=== PATIENT | female | born 1990 | race Asian ===

== ENCOUNTER → 2018-11-25 | Outpatient (CLI) | payer MEDICAID | END | disposition home or self-care (01) | LOC: ROC 11-23 10:37 | PROVIDERS: ATTEND Radiology Radiation Oncology | DX: Q28.2 Arteriovenous malformation of cerebral vessels (principal) | CPT/HCPCS: 99214; G0463 ==

== ENCOUNTER → 2019-03-10 | Outpatient (CLI) | payer MEDICAID ==
[~2019-03-10] MED LIST: GADOBUTROL 7.5 MMOL/7.5 ML PFS ONE
== END | disposition home or self-care (01) ==
LOC: CFH 08:35
PROVIDERS: ATTEND Radiology Radiation Oncology
DX: I65.21 Occlusion and stenosis of right carotid artery (principal); Q28.2 Arteriovenous malformation of cerebral vessels; G93.89 Other specified disorders of brain
CPT/HCPCS: 70544; 70553; A9585

== ENCOUNTER → 2019-03-17 | Outpatient (CLI) | payer MEDICAID | END | disposition home or self-care (01) | LOC: CFH 09:37 | PROVIDERS: ATTEND Radiology Radiation Oncology | DX: Q28.2 Arteriovenous malformation of cerebral vessels (principal) | CPT/HCPCS: 70546; A9585 ==

== ENCOUNTER → 2019-10-02 | Outpatient (CLI) | payer MEDICAID ==
[~2019-10-02] MED LIST changes: -GADOBUTROL 7.5 MMOL/7.5 ML PFS ONE; +GADOTERATE 10 MMOL/20 ML VIAL ONE
== END | disposition home or self-care (01) ==
LOC: CFH 12:34
PROVIDERS: ATTEND Radiology Radiation Oncology
DX: Q28.2 Arteriovenous malformation of cerebral vessels (principal); Q27.8 Other specified congenital malformations of peripheral vascular system
CPT/HCPCS: 70546; 70553; A9575

== ENCOUNTER → 2019-10-11 | Outpatient (CLI) | payer MEDICAID | END | disposition home or self-care (01) | LOC: ROC 08:42 | PROVIDERS: ATTEND Radiology Radiation Oncology | DX: Q28.2 Arteriovenous malformation of cerebral vessels (principal); G93.89 Other specified disorders of brain; Q27.8 Other specified congenital malformations of peripheral vascular system | CPT/HCPCS: 99213; G0463 ==

== ENCOUNTER → 2020-06-26 | Outpatient (CLI) | payer MEDICAID | END | disposition home or self-care (01) | LOC: ROC 07:38 | PROVIDERS: ATTEND Radiology Radiation Oncology | DX: Q28.2 Arteriovenous malformation of cerebral vessels (principal) | CPT/HCPCS: 99213; G0463 ==

== ENCOUNTER → 2020-10-30 | Outpatient (CLI) | payer MEDICAID | END | disposition home or self-care (01) | LOC: ROC 07:28 | PROVIDERS: ATTEND Radiology Radiation Oncology | DX: Z08 Encounter for follow-up examination after completed treatment for malignant neoplasm (principal); Q28.2 Arteriovenous malformation of cerebral vessels | CPT/HCPCS: 99442 ==

== ENCOUNTER 2021-05-06 07:36 | Outpatient (CLI) | payer MEDICAID | END 2021-05-06 23:59 | disposition home or self-care (01) | LOC: ROC 07:36 | PROVIDERS: ATTEND Radiology Radiation Oncology | DX: Z08 Encounter for follow-up examination after completed treatment for malignant neoplasm (principal); Q28.2 Arteriovenous malformation of cerebral vessels | CPT/HCPCS: 99212; G0463 ==